=== PATIENT | male | born 1940 | race Caucasian/White ===

== ENCOUNTER 2018-07-11 18:31 | Inpatient (IN) ==
[2018-07-11 19:41] LABS: Activated Partial Thrombo Time 34.1 sec (24.3-30.1); Baso % (Auto) 0.6 % (0.0-2.0); Eos # (Auto) 0.3 th/mm3 (0.0-0.4); Eos % (Auto) 4.7 % (0.0-4.0); Hematocrit 41.2 % (39.0-51.0); Hemoglobin 13.6 gm/dL (13.0-17.0); INR 2.3 Ratio; Lymph # (Auto) 1.6 th/mm3 (1.0-4.8); Lymph % (Auto) 28.4 % (9.0-44.0); Mean Corpuscular HGB Conc 33.1 % (32.0-36.0); Mean Corpuscular Hemoglobin 27.5 pg (27.0-34.0); Mean Corpuscular Volume 83.1 fL (80.0-100.0); Mean Platelet Volume 9.9 fL (7.0-11.0); Mono # (Auto) 0.6 th/mm3 (0.0-0.9); Mono % (Auto) 9.7 % (0.0-8.0); Neut # (Auto) 3.2 th/mm3 (1.8-7.7); Neut % (Auto) 56.6 % (16.0-70.0); Platelet Count 136 th/mm3 (150-450); Prothrombin Time 23.4 sec (9.8-11.6); Red Blood Count 4.95 mil/mm3 (4.50-5.90); Red Cell Distribution Width 15.2 % (11.6-17.2); White Blood Count 5.7 th/mm3 (4.0-11.0)
--- NOTE | 2018-07-11 19:50 | ED ---
HPI General Chief complaint: Arrhythmia / Palpitations Stated complaint: Cardiac Time Seen by Provider: 07/11/18 19:20 Source: patient Limitations: no limitations History of Present Illness HPI narrative: The patient is a 77 year old male who presents to the [facility] emergency department with a history of reportedly checking his heart rate in blood pressure at home earlier in the afternoon and noting that his heart rate was in the 40s. He reports that he was asymptomatic at this time. He denies having any sensation of palpitations, chest pain, chest pressure, shortness of breath, lightheaded sensation, or dizziness. He reports that he noted that his blood pressure was also lower than usual at 110/70. He reports that his blood pressure is usually 130/80. 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 The patient's supervisor finishing is Dr. Conley. The patient 3 years ago had a pacemaker placed for bradycardia and atrial fibrillation. On review of systems otherwise, the patient denies having any known recent fevers, cough, congestion, neck pain, abdominal pain, vomiting, diarrhea, urinary symptoms, or neurologic symptoms. Related Data Home Medications Medication Instructions Recorded Confirmed atorvastatin 40 mg PO DAILY 07/11/18 07/11/18 carvedilol 1.5 tab PO BID 07/11/18 07/11/18 glimepiride 1 mg PO BID 07/11/18 07/11/18 hydrochlorothiazide 25 mg PO DAILY 07/11/18 07/11/18 potassium chloride 10 meq PO BID 07/11/18 07/11/18 warfarin [Coumadin] 7.5 mg PO 4XW 07/11/18 07/11/18 warfarin [Coumadin] 10 mg PO 3XW 07/11/18 07/11/18 Allergies Allergy/AdvReac Type Severity Reaction Status Date / Time clindamycin Allergy Unknown UNKOWN Verified 07/11/18 18:55 latex Allergy Unknown UNKNOWN Verified 07/11/18 18:55 lisinopril Allergy Unknown UNKNOWN Verified 07/11/18 18:55 penicillin G Allergy Unknown UNKNOWN Verified 07/11/18 18:55 Sulfa (Sulfonamide Allergy Unknown UNKNOWN Verified 07/11/18 18:55 Antibiotics) tamsulosin Allergy Unknown UNKNOWN Verified 07/11/18 18:55 Review of Systems ROS: all other systems reviewed are negative [facility] Medical History Medical History Atrial fibrillation (Acute) Diabetes mellitus (Acute) HTN (hypertension) (Acute) Kyphoscoliosis (Acute) Pacemaker (Acute) Sleep apnea (Acute) Surgical History Surgical History History of prostatectomy (Acute) Family History Family History Father Diabetes Mother Heart disease Social History Social History Substance History: No History of Abuse Smoking Status: Never smoker How Often Do You Have a Drink Containing Alcohol: Monthly or less Recent Travel in [facility] [place] within the Last 8 Weeks: No Recent Out of Country Travel within the Last 8 Weeks: No Immunization History Tetanus Immunization: >5 Years Exam Const General: cooperative, no acute distress and well developed Nutritional Appearance: well nourished Orientation: alert, awake and oriented x3 HENMT Head: normocephalic and atraumatic Nose: no nasal discharge and no epistaxis Mouth: moist mucous membranes Throat: posterior oropharynx normal and uvula midline Eyes Sclera: normal sclerae Pupils: PERRL Neck Neck: no meningeal signs, trachea midline and no JVD Resp Effort & Inspection: no use of accessory muscles Auscultation: clear to auscultation bilaterally Cardio Rate: bradycardic (Heart rate in the 40s on palpation peer) Rhythm: regular rhythm Heart Sounds: no gallops, no murmurs and no rubs GI Inspection: non-distended Palpation: soft, no hepatosplenomegaly, no guarding, not rigid and nontender Auscultation: normal bowel sounds Back/Spine/Pelvis Back: no CVA tenderness Skin General: dry skin (warm) Neuro General: alert, awake, oriented x3 and other Speech: speech normal Motor: no movement abnormalities noted Extrem General: normal to inspection (2+ pulses in all 4 extremities.), no clubbing, no cyanosis and edema (Trace pedal edema bilateral lower extremities.) Laterality: bilaterally Psych Mood: congruent mood Affect: normal affect Judgment: judgment good Course Consultations Consultation #1: The patient's case including history, pertinent physical examination findings, and laboratory studies were discussed with Dr. Neely. It was agreed that the patient would be admitted to the hospitalist service. Consultation #2: The patient's case including history, pertinent physical examination findings, and laboratory studies were discussed with Dr. Rosa, the covering supervisor finishing for Dr. Conley. After reviewing the patient's symptoms, laboratory studies, medications, he did recommend that the patient be admitted for continued evaluation and consultation with the patient's supervisor finishing. He recommended that the patient received 40 mEq of potassium chloride p.o. Initial Documented Vital Signs Pulse Rate 79 07/11/18 18:46 Respiratory Rate 20 07/11/18 18:46 Blood Pressure 134/70 07/11/18 18:46 Pulse Oximetry 99 07/11/18 18:46 Last Documented Vital Signs Pulse Rate 72 07/12/18 01:00 Respiratory Rate 19 07/11/18 23:00 Blood Pressure 146/80 H 07/12/18 01:00 Pulse Oximetry 98 07/12/18 01:00 Medical Decision Making MDM Narrative Medical decision making narrative: During the course of the patient's emergency department visit, the patient's history, examination, and differential diagnosis were reviewed with the patient. The patient was placed on a rn cardiac cath with oximetry and frequent blood pressure monitoring. The patient had IV access obtained and blood work sent for analysis. A diagnostic evaluation was started regarding the patient's bradycardia. The patient's pacemaker will be interrogated. The patient reports that his pacemaker is set at 70. The patient's pacemaker does not appear to be capturing as the patient's heart rate is in the 40s on palpation. A white count of 5.7, hemoglobin 13.6, platelets 136, monocytes 9.7, PTT 23.4, INR 2.3, PTT 34.1, chemistries remarkable for BUN of 20, GFR of 80, glucose 152 , calcium 8.4, cardiac enzymes within normal limits, BNP elevated at 324, a chest x-ray shows cardiomegaly, no other acute abnormality. The pacemaker financial services representative interrogated the patient's pacemaker and reports that it is functioning normally. The patient has PVCs every other beat from the paced beats. The PVCs are not being conducted to the periphery, however the paced beats appear to be. The patient's case was discussed with the covering supervisor finishing, Dr. Rosa for the patient's supervisor finishing. The patient's evaluation was reviewed with him. He recommended that the patient received 40 mEq of potassium. He reports that the patient will be seen in consultation by his group in the morning. The patient's results were discussed with the patient, including the plan of care. I explained that further testing and/ or monitoring is indicated based on the patient's history, examination, and/ or laboratory findings. Therefore, I recommended admission for additional evaluation. The patient expressed understanding and was agreeable with this plan. The patient was admitted to the hospital in stable condition and sent to a bed under the care of [facility] service. Medical Screen Exam Complete: Yes Emergency Medical Condition: Yes Differential Diagnosis Differential Diagnosis: Malfunctioning pacemaker, versus cardiac dysrhythmia, versus electrolyte derangements, versus acute coronary syndrome, versus medication side effect Medical Records Medical records reviewed: Yes I reviewed the patient's medical records. Lab Data Lab results reviewed: Yes I reviewed the patient's lab results. Result diagrams: 07/11/18 18:55 07/11/18 18:55 Lab Results 07/11/18 07/11/18 07/11/18 Range/Units 18:55 18:55 18:55 WBC 5.7 (4.0-11.0) th/mm3 RBC 4.95 (4.50-5.90) mil/mm3 Hgb 13.6 (13.0-17.0) gm/dL Hct 41.2 (39.0-51.0) % MCV 83.1 (80.0-100.0) fL MCH 27.5 (27.0-34.0) pg MCHC 33.1 (32.0-36.0) % RDW 15.2 (11.6-17.2) % Plt Count 136 L (150-450) th/mm3 MPV 9.9 (7.0-11.0) fL Neut % (Auto) 56.6 (16.0-70.0) % Lymph % (Auto) 28.4 (9.0-44.0) % Irion % (Auto) 9.7 H (0.0-8.0) % Eos % (Auto) 4.7 H (0.0-4.0) % Baso % (Auto) 0.6 (0.0-2.0) % Neut # (Auto) 3.2 (1.8-7.7) th/mm3 Lymph # (Auto) 1.6 (1.0-4.8) th/mm3 Irion # (Auto) 0.6 (0.0-0.9) th/mm3 Eos # (Auto) 0.3 (0.0-0.4) th/mm3 Baso # (Auto) 0.0 (0.0-0.2) th/mm3 WBC Differential . Differential Comment Auto diff final PT 23.4 H (9.8-11.6) sec INR 2.3 Ratio APTT 34.1 H (24.3-30.1) sec Sodium (136-145) meq/L Potassium (3.5-5.1) meq/L Chloride (98-107) meq/L Carbon Dioxide (21.0-32.0) meq/L Anion Gap (5-15) meq/L BUN (7-18) mg/dL Creatinine (0.60-1.30) mg/dL Estimated GFR (>89) mL/min POC Glucose (68-110) mg/dl Random Glucose (74-106) mg/dL Calcium (8.5-10.1) mg/dL Magnesium (1.5-2.5) mg/dL Total Bilirubin (0.2-1.0) mg/dL AST (15-37) U/L ALT (12-78) U/L Alkaline Phosphatase (45-117) U/L Total Creatine Kinase (39-308) U/L CK-MB (CK-2) (0.5-3.6) ng/mL Troponin I (0.02-0.05) ng/mL B-Natriuretic Peptide 324 H (0-100) pg/mL Total Protein (6.4-8.2) g/dL Albumin (3.4-5.0) g/dL 07/11/18 07/12/18 07/12/18 Range/Units 18:55 02:05 02:22 WBC (4.0-11.0) th/mm3 RBC (4.50-5.90) mil/mm3 Hgb (13.0-17.0) gm/dL Hct (39.0-51.0) % MCV (80.0-100.0) fL MCH (27.0-34.0) pg MCHC (32.0-36.0) % RDW (11.6-17.2) % Plt Count (150-450) th/mm3 MPV (7.0-11.0) fL Neut % (Auto) (16.0-70.0) % Lymph % (Auto) (9.0-44.0) % Irion % (Auto) (0.0-8.0) % Eos % (Auto) (0.0-4.0) % Baso % (Auto) (0.0-2.0) % Neut # (Auto) (1.8-7.7) th/mm3 Lymph # (Auto) (1.0-4.8) th/mm3 Irion # (Auto) (0.0-0.9) th/mm3 Eos # (Auto) (0.0-0.4) th/mm3 Baso # (Auto) (0.0-0.2) th/mm3 WBC Differential Differential Comment PT (9.8-11.6) sec INR Ratio APTT (24.3-30.1) sec Sodium 138 (136-145) meq/L Potassium 3.7 (3.5-5.1) meq/L Chloride 101 (98-107) meq/L Carbon Dioxide 28.9 (21.0-32.0) meq/L Anion Gap 8 (5-15) meq/L BUN 20 H (7-18) mg/dL Creatinine 0.91 (0.60-1.30) mg/dL Estimated GFR 80 L (>89) mL/min POC Glucose 127 H (68-110) mg/dl Random Glucose 152 H (74-106) mg/dL Calcium 8.4 L (8.5-10.1) mg/dL Magnesium 2.3 (1.5-2.5) mg/dL Total Bilirubin 1.0 (0.2-1.0) mg/dL AST 29 (15-37) U/L ALT 27 (12-78) U/L Alkaline Phosphatase 84 (45-117) U/L Total Creatine Kinase 105 (39-308) U/L CK-MB (CK-2) 1.6 (0.5-3.6) ng/mL Troponin I Less than 0.02 L Less than 0.02 L (0.02-0.05) ng/mL B-Natriuretic Peptide (0-100) pg/mL Total Protein 7.3 (6.4-8.2) g/dL Albumin 3.6 (3.4-5.0) g/dL Imaging Data Attestation: I personally reviewed and interpreted this imaging study as follows : Radiologist's impression: Chest X-Ray 07/11/18 19:23 CONCLUSION: Cardiomegaly. ECG Data Attestation: I personally reviewed and interpreted this ECG as follows: Interpretation: The patient on arrival had an EKG that showed a paced rhythm heart rate of 84, every other beat appeared to be a PVC. Discharge Plan Discharge Disposition Patient Disposition: 30 Still Patient Discharge Details Diagnosis: Bradycardia, Frequent PVCs Physicians Team ED Provider: Sarai Camacho Primary Care Provider: UNKNOWN, Attending Provider: Percy Neely Other Providers: Michelle Montemayor Discharge Interventions Interventions: ED Discharge Assessment Last Done: 07/12/18 01:30 Status ED Status: Left Department Discharge Information Discharge Date/Time: 07/12/18 01:31
[2018-07-11 19:55] LABS: Albumin 3.6 g/dL (3.4-5.0); Anion Gap 8 meq/L (5-15); Aspartate Aminotransferase 29 U/L (15-37); Blood Urea Nitrogen 20 mg/dL (7-18); Calcium 8.4 mg/dL (8.5-10.1); Carbon Dioxide 28.9 meq/L (21.0-32.0); Chloride 101 meq/L (98-107); Glomerular Filtration Rate 80 mL/min (>89); Glucose,Random 152 mg/dL (74-106); Magnesium 2.3 mg/dL (1.5-2.5); Potassium 3.7 meq/L (3.5-5.1); Sodium 138 meq/L (136-145)
[2018-07-11 19:56] LABS: Alanine Aminotransferase 27 U/L (12-78)
[2018-07-11 20:00] LABS: Alkaline Phosphatase 84 U/L (45-117); Creatine Kinase 105 U/L (39-308); Total Protein 7.3 g/dL (6.4-8.2)
--- NOTE | 2018-07-11 20:00 | XR ---
EXAM DATE: 07/11/2018 7:58 PM EDT AGE/SEX: 77 years / Male INDICATIONS: Episode of bradycardia. CLINICAL DATA: This is the patient's initial encounter. Patient reports that signs and symptoms have been present for 1 day and indicates a pain score of 0/10. MEDICAL/SURGICAL HISTORY: . Atrial fibrillation. Pacemaker. COMPARISON: [facility], XR CHEST PA AND LAT, 12/17/2016. . FINDINGS: Cardiomegaly. Pacer device from a left subclavian transvenous approach again noted. Lungs are clear. Degenerative changes of the spine. CONCLUSION: Cardiomegaly. Electronically signed by: Bob Culver MD 07/11/2018 7:58 PM EDT
[2018-07-11 20:13] LABS: Creatine Kinase MB 1.6 ng/mL (0.5-3.6)
[2018-07-11] MEDS ORDERED: Bisacodyl 10 MG Supp RECTAL PRN (22:00)
[2018-07-11] MEDS ORDERED: Warfarin Consult Pharmacy OTHER PRN (22:05)
--- NOTE | 2018-07-12 00:21 | P.HPIM ---
History of Present Illness Primary Care Physician: UNKNOWN History of Present Illness: 77-year-old male with a history of atrial fibrillation status post pacemaker, diabetes on oral medication, hypertension, obstructive sleep apnea compliant with CPAP who presents with a 2-3-week history of decreased exercise tolerance. Patient took his heart rate today around 4 PM and noted it to be in the 40s. Palpated pulses continue to be in the 40s. Patient does report a 3-4-month history of lightheadedness without syncope upon standing. Patient denies any chest pain, shortness of breath, nausea, vomiting. Patient has chronic bilateral lower extremity venous stasis edema which is unchanged. Inpatient Certification: I certify that the inpatient services were ordered in accordance with Medicare regulations governing the order. 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 - Medical History Medical History: Medical History (Last Reviewed 07/12/18 @ 00:11 by Percy Neely MD) Atrial fibrillation Diabetes mellitus HTN (hypertension) Kyphoscoliosis Pacemaker Sleep apnea - Surgical History Surgical History: Surgical History (Last Reviewed 07/12/18 @ 00:11 by Percy Neely MD) History of prostatectomy - Family History Family History: Family History (Last Updated 07/12/18 @ 00:12 by Percy Neely MD) Father Diabetes Mother Heart disease - Tobacco History Smoking Status: Never smoker - Alcohol History How Often Do You Have a Drink Containing Alcohol: Monthly or less - Substance Use History Substance History: No History of Abuse - Travel History Recent Travel in the [place] Within the Last 8 Weeks: No Recent Travel Out of the Country Within the Last 8 Weeks: No - Immunization History Tetanus Immunization: >5 Years Medications and Allergies Active Medications: Active Medications Al Hydroxide/Mg Hydroxide (Milk Of Magnesia Liq) 30 ml PO Q12H PRN PRN Reason: Mild Constipation Atorvastatin Calcium (Lipitor) 40 mg PO DAILY GEOVANI Bisacodyl (Dulcolax Supp) 10 mg RECTAL DAILY PRN PRN Reason: SEVERE CONSITIPATION Carvedilol (Coreg) 18.75 mg PO BID GEOVANI Glimepiride (Amaryl) 1 mg PO BID GEOVANI Lactulose (Lactulose Liq) 30 ml PO DAILY PRN PRN Reason: SEVERE CONSITIPATION Pharmacy Profile Note (Coumadin Consult Pharmacy) 1 each OTHER UNSCH PRN PRN Reason: PHARMACY DOCUMENTATION Sennosides (Senokot) 17.2 mg PO Q12H PRN PRN Reason: Moderate Constipation Sodium Chloride (Ns Flush) 2 ml IV.FLUSH UNSCH PRN PRN Reason: FLUSH AFTER USING IV ACCESS Allergies Allergy/AdvReac Type Severity Reaction Status Date / Time clindamycin Allergy Unknown UNKOWN Verified 07/11/18 18:55 latex Allergy Unknown UNKNOWN Verified 07/11/18 18:55 lisinopril Allergy Unknown UNKNOWN Verified 07/11/18 18:55 penicillin G Allergy Unknown UNKNOWN Verified 07/11/18 18:55 Sulfa (Sulfonamide Allergy Unknown UNKNOWN Verified 07/11/18 18:55 Antibiotics) tamsulosin Allergy Unknown UNKNOWN Verified 07/11/18 18:55 Home Medications Medication Instructions Recorded Confirmed Type atorvastatin 40 mg PO DAILY 07/11/18 07/11/18 History carvedilol 1.5 tab PO BID 07/11/18 07/11/18 History glimepiride 1 mg PO BID 07/11/18 07/11/18 History hydrochlorothiazide 25 mg PO DAILY 07/11/18 07/11/18 History potassium chloride 10 meq PO BID 07/11/18 07/11/18 History warfarin [Coumadin] 7.5 mg PO 4XW 07/11/18 07/11/18 History warfarin [Coumadin] 10 mg PO 3XW 07/11/18 07/11/18 History Exam Vital signs: Vital Signs 07/11/18 18:46 07/11/18 19:29 Pulse Rate 79 Respiratory Rate 20 Blood Pressure 134/70 Pulse Oximetry 99 99 Intake & Output 07/11/18 07/11/18 07/12/18 06:59 18:59 06:59 Weight 85.275 kg Narrative: GENERAL: Patient sitting up in bed. Appears comfortable. SKIN: Warm and dry. HEAD: Atraumatic. Normocephalic. EYES: Pupils equal and round. No scleral icterus. No injection or drainage. ENT: No nasal bleeding or discharge. Mucous membranes pink and moist. NECK: Trachea midline. No JVD. CARDIOVASCULAR: Paced rhythm with PVCs. Palpated pulse is bradycardic regular with occasional skipped beat. RESPIRATORY: No accessory muscle use. Clear to auscultation. Breath sounds equal bilaterally. GASTROINTESTINAL: Abdomen soft, non-tender, nondistended. Hepatic and splenic margins not palpable. MUSCULOSKELETAL: Extremities without clubbing, cyanosis. 1+ bilateral lower extremity edema. No obvious deformities. NEUROLOGICAL: Awake and alert. No obvious cranial nerve deficits. Motor grossly within normal limits. Five out of 5 muscle strength in the arms and legs. Normal speech. PSYCHIATRIC: Appropriate mood and affect; insight and judgment normal. Results - Labs CBC & Chem 7: 07/11/18 18:55 07/11/18 18:55 Labs: Short CBC 07/11/18 Range/Units 18:55 WBC 5.7 (4.0-11.0) th/mm3 Hgb 13.6 (13.0-17.0) gm/dL Hct 41.2 (39.0-51.0) % Plt Count 136 L (150-450) th/mm3 BMP 07/11/18 18:55 Sodium 138 Potassium 3.7 Chloride 101 Carbon Dioxide 28.9 BUN 20 H Creatinine 0.91 Calcium 8.4 L Cardiac Enzymes 07/11/18 Range/Units 18:55 Total Creatine Kinase 105 (39-308) U/L CK-MB (CK-2) 1.6 (0.5-3.6) ng/mL Troponin I Less than 0.02 L (0.02-0.05) ng/mL Liver Function 07/11/18 Range/Units 18:55 Total Bilirubin 1.0 (0.2-1.0) mg/dL AST 29 (15-37) U/L ALT 27 (12-78) U/L Alkaline Phosphatase 84 (45-117) U/L Albumin 3.6 (3.4-5.0) g/dL - Imaging Impressions Chest X-Ray 07/11/18 19:23 CONCLUSION: Cardiomegaly. Caprini VTE Risk Assessment Caprini VTE Risk Assessment: Moderate/High Risk (score >= 2) Caprini Risk Assessment Model: Point Value = 1 Point Value = 2 Point Value = 3 Point Value = 5 Age 41-60 Minor surgery BMI > 25 kg/m2 Swollen legs Varicose veins or History of unexplained or recurrent spontaneous Oral contraceptives or hormone replacement Sepsis (< 1 month) Serious lung disease, including pneumonia (< 1 month) Abnormal pulmonary function Acute myocardial infarction Congestive heart failure (< 1 month) History of inflammatory bowel disease Medical patient at bed rest Age 61-74 Arthroscopic surgery Major open surgery (> 45 min) Laparoscopic surgery (> 45 min) Malignancy Confined to bed (> 72 hours) Immobilizing plaster cast Central venous access Age >= 75 History of VTE Family history of VTE Factor V Leiden Prothrombin [id number] Lupus anticoagulant Anticardiolipin antibodies Elevated serum homocysteine Heparin-induced thrombocytopenia Other congenital or acquired thrombophilia Stroke (< 1 month) Elective arthroplasty Hip, pelvis, or leg fracture Acute spinal cord injury (< 1 month) Prophylaxis Regimen: Total Risk Factor Score Risk Level Prophylaxis Regimen 0-1 Low Early ambulation 2 Moderate Order ONE of the following: *Sequential Compression Device (SCD) *Heparin 5000 units SQ BID 3-4 Higher Order ONE of the following medications: *Heparin 5000 units SQ TID *Enoxaparin/Lovenox 40 mg SQ daily (WT < 150 kg, CrCl > 30 mL/min) *Enoxaparin/Lovenox 30 mg SQ daily (WT < 150 kg, CrCl > 10-29 mL/min) *Enoxaparin/Lovenox 30 mg SQ BID (WT < 150 kg, CrCl > 30 mL/min) AND/OR *Sequential Compression Device (SCD) 5 or more Highest Order ONE of the following medications: *Heparin 5000 units SQ TID (Preferred with Epidurals) *Enoxaparin/Lovenox 40 mg SQ daily (WT < 150 kg, CrCl > 30 mL/min) *Enoxaparin/Lovenox 30 mg SQ daily (WT < 150 kg, CrCl > 10-29 mL/min) *Enoxaparin/Lovenox 30 mg SQ BID (WT < 150 kg, CrCl > 30 mL/min) AND *Sequential Compression Device (SCD) Assessment and Plan - Plan //Symptomatic bradycardia //Atrial fibrillation. -Patient is set at 70, however palpated heart rate in the 40s. Pacer function appropriate as per interrogation however is missing beats due to PVCs. -Potassium 3.5. Replace. -INR 2.3. Therapeutic. Will consult pharmacist. -Admit to [facility]. -Cardiology be consulted. Continue Coreg. //Hypertension. Blood pressure acceptable. Hold off on hydrochlorothiazide for now and monitor. //Diabetes mellitus. Blood sugars acceptable. Diabetic diet and insulin sliding scale //Hyperlipidemia. Chronic. Continue home medication. Discussed Condition With: Patient, nurse, ED physician, at bedside.
[2018-07-12] MEDS ORDERED: Glimepiride 1 MG Tablet PO SCH (09:00)
[2018-07-12] MEDS ORDERED: Carvedilol 12.5 MG Tablet PO SCH (09:00)
--- NOTE | 2018-07-12 10:06 | MB ---
cc: Beto Benson MD DATE: 07/12/2018 REASON FOR CONSULTATION: Bradycardia, PVCs, history of pacemaker implant. HISTORY OF PRESENT ILLNESS: The patient is a 77-year-old white male, followed in our office by Dr. Michelle Montemayor, with a history of sleep apnea, diabetes, hypertension, pacemaker implant, paroxysmal atrial fibrillation, possible nonsustained ventricular tachycardia, who came to the emergency room after an EKG at an urgent care center suggested "pacemaker malfunction." He was at home at his computer when he decided to check his blood pressure and heart rate. His heart rate recorded as 40 and he checked his pulse for a few minutes and confirmed the 40 beats per minute pulse. At the time, the patient was completely asymptomatic, denying dizziness, syncope, near syncope, palpitations, chest pain, shortness of breath. The patient exercises regularly. Rarely, he experiences fleeting lightheadedness which lasts a few seconds. His oral intake has been good. PAST MEDICAL HISTORY: 1. Sleep apnea. 2. Benign prostatic hypertrophy. 3. Diabetes. 4. Hyperlipidemia. 5. Hypertension. 6. [employer] permanent pacemaker implant. 7. Paroxysmal atrial fibrillation. 8. Possible nonsustained ventricular tachycardia demonstrated on pacemaker checks. His ejection fraction by echocardiograms has been shown to be normal. CARDIAC MEDICATIONS AT HOME: Hydrochlorothiazide 25 mg daily, atorvastatin 40 mg at bedtime, potassium chloride 10 mEq b.i.d., carvedilol 3.125 mg tablet 1-1/2 b.i.d., warfarin 7.5 mg 4 days a week and 10 mg the other days. ALLERGIES: TAMSULOSIN SULFA, PENICILLIN, LISINOPRIL, CLINDAMYCIN, LATEX. FAMILY HISTORY: Noncontributory. SOCIAL HISTORY: The patient denies any history of tobacco abuse. He is a nondrinker. REVIEW OF SYSTEMS: As in history of present illness, otherwise negative or noncontributory. He also denies headache, abdominal pain, melena, dyspepsia, bright red blood per rectum. PHYSICAL EXAMINATION: VITAL SIGNS: His blood pressure 122/80 with a pulse of 87, respirations 17. GENERAL: He is a well-developed, well-nourished white male, in no acute distress. NECK: Jugular venous pressure is normal. Carotid pulses are 2+ bilaterally and without bruits. CHEST: Reveals clear lungs lechuga. CARDIAC: He has a regular rhythm and rate without S3, S4, or murmur. ABDOMEN: He has a soft, nontender abdomen. Bowel sounds are present. There is no definite hepatosplenomegaly. EXTREMITIES: Reveals no clubbing, cyanosis, or edema. DIAGNOSTIC DATA: Chest x-ray shows no acute disease. EKG shows ventricular paced rhythm. Laboratory data includes normal CBC; normal basic metabolic profile, except for glucose 152; negative cardiac enzymes. IMPRESSION: Asymptomatic bradycardia, likely caused by non-perfusing premature ventricular contractions in a 77-year-old white male with a history of sleep apnea, diabetes, hypertension, pacemaker implant, paroxysmal atrial fibrillation, nonsustained ventricular tachycardia. The patient was completely asymptomatic with an effective heart rate of 40 beats per minute. His pacemaker interrogation shows normal appropriate pacemaker function. There is no definite evidence for acute coronary syndrome. Left ventricular function by previous echocardiograms is normal. I did discuss with the patient potential treatment options for the premature ventricular contractions. At this time, as he is asymptomatic, I would recommend no specific therapy. RECOMMENDATIONS: The patient can be discharged home from a cardiac standpoint. MD PAMELA Virgen/good , 08:49 AM , 09:02 AM MTDD
--- NOTE | 2018-07-12 13:27 | ECG ---
Date Performed: 07/12/2018 Time Performed: 06:09:54 PTAGE: 77 years EKG: Demand pacing Pacemaker rhythm - no further analysis Abnormal ECG PREVIOUS TRACING : 07/11/2018 18.47 DOCTOR: Stan Samson Interpretating Date/Time 07/12/2018 13:26:06
--- NOTE | 2018-07-12 13:28 | ECG ---
Date Performed: 07/12/2018 Time Performed: 01:50:46 PTAGE: 77 years EKG: Ventricular pacing Pacemaker rhythm - no further analysis Abnormal ECG NO PREVIOUS TRACING DOCTOR: Stan Samson Interpretating Date/Time 07/12/2018 13:27:13
--- NOTE | 2018-07-12 13:37 | ECG ---
Date Performed: 07/11/2018 Time Performed: 18:47:02 PTAGE: 77 years EKG: ELECTRONIC VENTRICULAR PACEMAKER ABNORMAL RHYTHM ECG WARNING: DATA QUALITY MAY AFFECT INTER PRETATION INTERPRETATION BASED ON A DEFAULT AGE OF 40 YEARS PREVIOUS TRACING : 09/10/2015 19.24 DOCTOR: Stan Samson Interpretating Date/Time 07/12/2018 13:34:52
--- NOTE | 2018-07-12 16:19 | P.DS ---
Date of admission: 07/11/18 23:05 Primary care physician: UNKNOWN Brief History from admission: 77-year-old male with a history of atrial fibrillation status post pacemaker, diabetes on oral medication, hypertension, obstructive sleep apnea compliant with CPAP who presents with a 2-3-week history of decreased exercise tolerance. Patient took his heart rate today around 4 PM and noted it to be in the 40s. Palpated pulses continue to be in the 40s. He ended up going to an urgent care and then was sent to our emergency department for evaluation and care. DS: Summary Hospital Course: This patient is a 77-year-old male with a diagnosis of sleep apnea, diabetes mellitus type 2, hypertension, atrial fibrillation on Coumadin, status post pacemaker. The patient presented to our facility after he checked his heart rate at home and noted that his pulse was around 40 bpm. He ended up going to an urgent care and was subsequently sent to our emergency department for evaluation and care. The patient was asymptomatic during this time. 1. Asymptomatic bradycardia likely caused by a non-perfusing premature ventricular contractions. The patient was admitted and monitored on telemetry during the whole hospitalization the patient was asymptomatic. He denied having any episodes of chest pain, no palpitations, no dizziness. EKG at our facility showed a ventricular paced rhythm with PVCs. Cardiac enzymes and troponins were negative. Chest x-ray did not showed cardiomegaly without any other acute findings. Cardiology was consulted to evaluate the patient. The pacemaker was interrogated which ended up showing a normal functioning pacemaker. Cardiology did not have any specific therapy recommendations for the patient given he was asymptomatic. He will be discharged home today and is to continue his home medications. 2. Hypertension Blood pressure is currently under control. The patient can continue his home antihypertensive medications. 3. Atrial fibrillation on Coumadin Continue home dose of Coumadin. Patient's INR is currently therapeutic. 4. Diabetes mellitus type 2 Continue home medications for diabetes noticed type II. He can follow-up outpatient with his primary care physician and his diabetes medication regimen can be adjusted as needed. - Time Spent with Patient Total time spent providing and/or coordinating discharge services: Greater than 30 minutes - Quality: VTE Deep Vein Thrombosis/Pulmonary Embolism Present on Admission: No Exam Vital signs: Vital Signs 07/11/18 18:46 07/11/18 19:29 07/11/18 21:00 Temperature Pulse Rate 79 72 Respiratory Rate 20 15 Blood Pressure 134/70 139/76 Pulse Oximetry 99 99 98 07/11/18 23:00 07/12/18 01:00 07/12/18 03:00 Temperature 98.2 F Pulse Rate 68 72 70 Respiratory Rate 19 18 Blood Pressure 140/82 146/80 H 136/93 H Pulse Oximetry 97 98 99 07/12/18 06:00 07/12/18 08:00 07/12/18 09:50 Temperature 97.7 F 98.5 F Pulse Rate 87 70 Respiratory Rate 17 16 Blood Pressure 122/81 134/83 Pulse Oximetry 99 98 98 07/12/18 13:41 Temperature 98.9 F Pulse Rate 78 Respiratory Rate 16 Blood Pressure 121/81 Pulse Oximetry 96 Intake & Output 07/11/18 07/12/18 07/12/18 18:59 06:59 18:59 Output Total 500 / 500 Balance -500 / -500 Weight 85.275 kg 85.8 kg Output: Urine 500 / 500 Other: # Voids 1 Date of Last Bowel Movement 07/12/18 Narrative: General patient in no acute distress HEENT extraocular movements are intact, clear oropharyngeal mucosa, no JVD Cardiovascular S1-S2 audible Respiratory clear to auscultation bilaterally Abdomen soft, nontender, nondistended, normal bowel sounds Extremities no edema 2+ distal pulses in bilateral upper and lower extremities Neuro cranial nerves II through XII intact Results Procedures completed during hospitalization: Pacemaker interrogation Labs on day of discharge: Labs from last 24 hours 07/12/18 07/12/18 07/12/18 13:44 08:18 07:58 WBC RBC Hgb Hct MCV MCH MCHC RDW Plt Count MPV Neut % (Auto) Lymph % (Auto) [place] % (Auto) Eos % (Auto) Baso % (Auto) Neut # (Auto) Lymph # (Auto) [place] # (Auto) Eos # (Auto) Baso # (Auto) WBC Differential Differential Comment PT INR APTT Sodium Potassium Chloride Carbon Dioxide Anion Gap BUN Creatinine Estimated GFR POC Glucose 119 H 124 H Random Glucose Calcium Magnesium Total Bilirubin AST ALT Alkaline Phosphatase Total Creatine Kinase CK-MB (CK-2) Troponin I Less than 0.02 L B-Natriuretic Peptide Total Protein Albumin 07/12/18 07/12/18 07/11/18 02:22 02:05 18:55 WBC RBC Hgb Hct MCV MCH MCHC RDW Plt Count MPV Neut % (Auto) Lymph % (Auto) [place] % (Auto) Eos % (Auto) Baso % (Auto) Neut # (Auto) Lymph # (Auto) [place] # (Auto) Eos # (Auto) Baso # (Auto) WBC Differential Differential Comment PT INR APTT Sodium 138 Potassium 3.7 Chloride 101 Carbon Dioxide 28.9 Anion Gap 8 BUN 20 H Creatinine 0.91 Estimated GFR 80 L POC Glucose 127 H Random Glucose 152 H Calcium 8.4 L Magnesium 2.3 Total Bilirubin 1.0 AST 29 ALT 27 Alkaline Phosphatase 84 Total Creatine Kinase 105 CK-MB (CK-2) 1.6 Troponin I Less than 0.02 L Less than 0.02 L B-Natriuretic Peptide Total Protein 7.3 Albumin 3.6 07/11/18 07/11/18 07/11/18 18:55 18:55 18:55 WBC 5.7 RBC 4.95 Hgb 13.6 Hct 41.2 MCV 83.1 MCH 27.5 MCHC 33.1 RDW 15.2 Plt Count 136 L MPV 9.9 Neut % (Auto) 56.6 Lymph % (Auto) 28.4 [place] % (Auto) 9.7 H Eos % (Auto) 4.7 H Baso % (Auto) 0.6 Neut # (Auto) 3.2 Lymph # (Auto) 1.6 [place] # (Auto) 0.6 Eos # (Auto) 0.3 Baso # (Auto) 0.0 WBC Differential . Differential Comment Auto diff final PT 23.4 H INR 2.3 APTT 34.1 H Sodium Potassium Chloride Carbon Dioxide Anion Gap BUN Creatinine Estimated GFR POC Glucose Random Glucose Calcium Magnesium Total Bilirubin AST ALT Alkaline Phosphatase Total Creatine Kinase CK-MB (CK-2) Troponin I B-Natriuretic Peptide 324 H Total Protein Albumin - Impressions ITS Impressions Chest X-Ray 07/11/18 19:23 CONCLUSION: Cardiomegaly. Discharge Plan - Discharge Disposition Patient Disposition: 01 Discharge Home - Discharge Condition Condition: Good - Discharge Order Discharge Orders: Discharge Order (Routine); Ordered 07/12/18 Ordered By: Seven Bob Cardiology Clear for Discharge (Routine); Ordered 07/12/18 Ordered By: Beto Benson - Physicians Team Primary Care Provider: UNKNOWN, Attending Provider: Seven Bob Other Providers: Michelle Montemayor MD
== END 2018-07-12 18:01 | disposition home or self-care (01) ==
LOC: NEDA 18:31 → NEPC 18:31 → HCIN 07-12 01:31
PROVIDERS: ADMIT Hospitalist; ATTEND Hospitalist